=== PATIENT | female | born 1975 | race Two or more races ===

== ENCOUNTER 2017-05-06 06:38 | Emergency (ER) | payer OTHER ==
[~2017-05-06] VITALS: Ht 160 cm; Wt 66.2 kg
[2017-05-06 08:10] VITALS: BP 108/62
[2017-05-06] MEDS ORDERED: METHOCARBAMOL 500 MG TAB PO ONE (09:30)
== END 2017-05-06 09:56 | disposition home or self-care (01) ==
LOC: ER 06:38
DX: S74.00XA Injury of sciatic nerve at hip and thigh level, unspecified leg, initial encounter (principal); X50.1XXA Overexertion from prolonged static or awkward postures, initial encounter; Y93.89 Activity, other specified; Y99.8 Other external cause status; Y92.89 Other specified places as the place of occurrence of the external cause

== ENCOUNTER 2025-02-08 08:33 | Emergency (ER) | payer OTHER ==
[~2025-02-08] VITALS: Ht 160 cm; Wt 66.8 kg
[2025-02-08 09:48] LABS: Urine Bacteria None Seen /hpf (None Seen)
[2025-02-08 09:51] LABS: Basophils # (auto) 0 10 ^3/uL (0-0.2); Eosinophils # (auto) 0 10 ^3/uL (0-0.8); Hemoglobin 9.7 g/dL (12.2-16.2); Neutrophils # (auto) 1.8 10 ^3/uL (1.6-8.6); Nucleated Red Blood Cells % 0.1 %; Red Cell Distribution Width 19.5 % (11.8-14.3); White Blood Cell 3.4 10^3/uL (4.4-10.8)
[2025-02-08 09:54] LABS: Basophils % (auto) 0.2 % (0.0-2.0); Hematocrit 31.8 % (36.0-46.0); Lymphocytes # (auto) 1.2 10 ^3/uL (0.4-5.4); Lymphocytes % (auto) 35.2 % (10.0-50.0); Mean Corpuscular Hemoglobin 21.1 pg (28.0-32.0); Mean Corpuscular Hgb Conc. 30.6 g/dL (32.0-36.0); Monocytes # (auto) 0.4 10 ^3/uL (0-1.3); Monocytes % (auto) 12.5 % (0.0-12.0); Neutrophils % (auto) 52.1 % (37.0-80.0); Platelet Count (auto) 325 10^3/uL (140-450)
[2025-02-08 09:59] LABS: Chloride 105 mmol/L (98-107); Potassium 3.7 mmol/L (3.5-5.1)
[2025-02-08 10:00] LABS: Anion Gap 8 (5-15); Calcium 9.4 mg/dL (8.7-10.4); Carbon Dioxide 23 mmol/L (20-31); Sodium 136 mmol/L (136-145)
[2025-02-08 10:01] LABS: Urine Blood Negative /uL (Negative); Urine Clarity Clear (Clear); Urine Color Light-Yellow (Yellow); Urine Mucus FEW (None Seen); Urine Protein, UAD Negative (Negative); Urine Specific Gravity 1.018 (1.001-1.035); Urine Squamous Epithelial Cell FEW /hpf (<5); Urine Urobilinogen Normal (Negative); Urine WBC 1 /HPF (0-5)
[2025-02-08 10:05] LABS: BUN/Creatinine Ratio 13.7 (10.0-20.0); Blood Urea Nitrogen 10 mg/dL (9-23); Glucose 95 mg/dL (74-106)
--- NOTE | 2025-02-08 10:10 | DVH ---
XY CHEST XRAY 1 VIEW, HISTORY: cough x 3 wks. COMPARISON: None None TECHNICAL DATA: 1 view of the chest was obtained. FINDINGS: Lines and tubes: None Cardiomediastinal silhouette: normal Pulmonary vasculature: normal Lung expansion: normal Lung airspace: normal Lung interstitium: normal Pleura: normal Pneumothorax: no Bones: Unremarkable Other: no IMPRESSION: No acute intrathoracic abnormality.
[2025-02-08 10:17] VITALS: BP 146/97; PULSE 97; RESP 17; TEMP 98.2; O2SAT 97
[2025-02-08] MEDS ORDERED: DOXY-286 PO (10:29)
[2025-02-08] MEDS ORDERED: FER325T PO (10:29)
[2025-02-08] MEDS ORDERED: ERY05OO OP (10:29)
--- NOTE | 2025-02-08 10:30 | ED.PDOC ---
SOB-HPI HPI Comments This is a pleasant 50-year-old female with no pertinent MHx that presents with a chief complaint of URI symptoms. She complains of a productive cough for the last three weeks that is associated with green phlegm. Also notes bilateral ocular discharge that has been constant for the last two days. Discharges white yellow when color in his usually worse in the a.m.. Has not tried medications for the symptoms listed above. Denies sick contacts. Denies fevers chills night sweats unintentional weight loss Denies persistent chest pain, shortness of breath, leg swelling Denies history of asthma nor any breathing conditions Denies history of pneumonia Denies recent international travel Associated with no ocular changes. Denies any eye pain. Foreign body sensation in the eyes. Chief Complaint: Cough Time Seen by MD: 08:44 Primary Care Provider: INOCENCIO Denson notes: Nurses Notes, Medications, Allergies Information Source: Patient Mode of Arrival: Ambulatory Past Medical History PAST MEDICAL HISTORY: Denies Surgical History: Denies all surgeries HAIR CUTTER History: No Pertinent HAIR CUTTER History Family History Family History: Reviewed,noncontributory to illness Social History Smoker: Non-Smoker Alcohol: Denies ETOH Use Drugs: Denies Drug Use All Other Systems: Reviewed and Negative (PER HPI) Physical Exam General Appearance: No Apparent Distress, Normal HEENT: Normal ENT Inspection, PERRL/EOMI (No edema erythema or TTP. Bilateral conjunctival injection to the orbital region. Yellow stringy discharge times across the upper and lower eyelid. Vision intact.), Pharynx Normal, TMs Normal Neck: Full Range of Motion, Non-Tender, Normal, Normal Inspection Respiratory: Chest Non-Tender, Lungs Clear, No Accessory Muscle Use, No Respiratory Distress, Normal Breath Sounds Cardiovascular: No Edema, No JVD, No Murmur, No Gallop, Normal Peripheral Pulses, Regular Rate/Rhythm Breast Exam: Deferred Gastrointestinal: No Organomegaly, Non Tender, No Pulsatile Mass, Normal Bowel Sounds, Soft Genitalia: Deferred Pelvic: Deferred Rectal: Deferred Extremities: No calf tenderness, Normal capillary refill, Normal inspection, Normal range of motion, Non-tender, No pedal edema Musculoskeletal : Apperance: Normal Neurologic: Alert, manager care management II-XII nml as Tested, No Motor Deficits, Normal Affect, Normal Mood, No Sensory Deficits Cerebellar Function: Normal Reflexes: Normal Skin: Dry, Normal Color, Warm Lymphatic: No Adenopathy Was a procedure done? Was a procedure done?: No Differential Dx Differential Diagnosis: Bronchitis, Pneumonia, URI X-Ray, Labs, Meds, VS Vital Signs Date Time Temp Pulse Resp B/P (MAP) Pulse Ox O2 Delivery O2 Flow Rate FiO2 02/08/25 10:17 98.2 88 16 146/97 (113) 98 98.2 02/08/25 10:17 97 17 97 Room Air 02/08/25 08:54 18 97 Room Air* 0 21 02/08/25 08:54 97.6 97 18 154/100 (118) 97 97.6 135/93 (107) Lab Test 02/08/25 09:35 02/08/25 09:27 Range/Units White Blood Count 3.4 L 4.4-10.8 10^3/uL Red Blood Count 4.60 4.0-5.20 10^6/uL Hemoglobin 9.7 L 12.2-16.2 g/dL Hematocrit 31.8 L 36.0-46.0 % Mean Corpuscular Volume 69.0 L 80.0-100.0 fL Mean Corpuscular Hemoglobin 21.1 L 28.0-32.0 pg Mean Corpuscular Hemoglobin Concent 30.6 L 32.0-36.0 g/dL Red Cell Distribution Width 19.5 H 11.8-14.3 % Platelet Count 325 140-450 10^3/uL Mean Platelet Volume 6.7 L 6.9-10.8 fL Neutrophils (%) (Auto) 52.1 37.0-80.0 % Lymphocytes (%) (Auto) 35.2 10.0-50.0 % Monocytes (%) (Auto) 12.5 H 0.0-12.0 % Eosinophils (%) (Auto) 0.0 0.0-7.0 % Basophils (%) (Auto) 0.2 0.0-2.0 % Neutrophils # (Auto) 1.8 1.6-8.6 10 ^3/uL Lymphocytes # (Auto) 1.2 0.4-5.4 10 ^3/uL Monocytes # (Auto) 0.4 0-1.3 10 ^3/uL Eosinophils # (Auto) 0 0-0.8 10 ^3/uL Basophils # (Auto) 0 0-0.2 10 ^3/uL Nucleated Red Blood Cells 0.1 % Sodium Level 136 136-145 mmol/L Potassium Level 3.7 3.5-5.1 mmol/L Chloride Level 105 98-107 mmol/L Carbon Dioxide Level 23 20-31 mmol/L Anion Gap 8 5-15 Blood Urea Nitrogen 10 9-23 mg/dL Creatinine 0.73 0.550-1.02 mg/dL Glomerular Filtration Rate Calc 101 >90 mL/min BUN/Creatinine Ratio 13.7 10.0-20.0 Serum Glucose 95 74-106 mg/dL Calcium Level 9.4 8.7-10.4 mg/dL Urine Color Light-yellow Yellow Urine Clarity Clear Clear Urine pH 6.0 5.0-9.0 Urine Specific [place] 1.018 1.001-1.035 Urine Protein Negative Negative Urine Ketones Negative Negative Urine Blood Negative Negative /uL Urine Nitrite Negative Negative Urine Bilirubin Negative Negative Urine Urobilinogen Normal Negative mg/dL Urine Leukocyte Esterase Negative Negative /uL Urine RBC 1 0 - 4 /hpf Urine Microscopic WBC 1 0-5 /HPF Urine Squamous Epithelial Cells Few <5 /hpf Urine Bacteria None seen None Seen /hpf Urine Mucus Few None Seen Urine Glucose Normal Normal mg/dL PATIENT: REGIS DÍAZT: [id number]: [id number] : 1975 LOC: ER ROOM / BED: / AGE / SEX: 50 / F ADM STATUS: REG ER SERVICE [id number] ORDERING PHYSICIAN: IZA SCOTT NP PROCEDURE(s): CXR1 - CHEST XRAY 1 VIEW REASON: cough x 3 wks. ORDER NUMBER(s): [id number], ACCESSION NUMBER(s): [id number] XY CHEST XRAY 1 VIEW, HISTORY: cough x 3 wks. COMPARISON: None None TECHNICAL DATA: 1 view of the chest was obtained. FINDINGS: Lines and tubes: None Cardiomediastinal silhouette: normal Pulmonary vasculature: normal Lung expansion: normal Lung airspace: normal Lung interstitium: normal Pleura: normal Pneumothorax: no Bones: Unremarkable Other: no IMPRESSION: No acute intrathoracic abnormality. ATED BY: DARINEL ALEMAN MD DICTATED DATE/TIME: 02/08/25 1007 SIGNED BY: DARINEL ALEMAN MD SIGNED DATE/TIME: 02/08/25 1007 CC: X-Ray, Labs, Meds, VS Comment Presentation consistent with bacterial conjunctivitis. Patient is otherwise afebrile and well-appearing without clinical evidence of pre-septal cellulitis or orbital cellulitis. No recent history concerning for corneal abrasion or retained foreign body Prescription for topical antibiotics provided. Advised that patient still considered contagious for up to 24 hours after starting antibiotics Discussed: -Frequent hand washing -Over the counter analgesics -Hydration - Return to school/work after 24 hours of antibiotic use -Close follow up with a primary care provider or higher level of care if no improvement/worsening symptoms Based on shared decision-making patient also agreed to empiric treatment. Complete course of antibiotic therapy even if symptoms improve or resolve. There should be no leftover antibiotics as this can lead to antibiotic resistant bacteria and even worse infection. Patient verbalized understanding. Potential side effects discussed with patient including abdominal pain, nausea, diarrhea. Discussed that cough can linger up to 6 weeks after viral URI Supportive care and return precautions discussed Recommended vitamin C, rest, handwashing, and symptomatic care. Expect 2-week course with possibly of cough lingering up to 6 weeks. Nonpharmacological remedies for fluids has been recommended as well Additional MDM Review of External, Non-ED records: External records reviewed. Discussion with independent historian (EMS, family) history obtained from the patient at bedside Chronic conditions affecting care: none Social determinants of health affecting care: none Consideration of admission (observation or admission): I considered escalation of care to admission for this patient, however given the reassuring workup, the patient is safe for outpatient management. Time of 1ST Reevaluation: 10:24 Reevaluation 1ST: Improved Patient Education/Counseling: Diagnosis, Treatment, Prognosis Family Education/Counseling: Diagnosis, Treatment, Prognosis Departure 1 Departure Time of Disposition: 10:27 Impression: Primary Impression: Conjunctivitis Qualified Codes: H10.33 - Unspecified acute conjunctivitis, bilateral Additional Impressions: Bronchitis Anemia Qualified Codes: D64.9 - Anemia, unspecified Disposition: HOME / SELF CARE / HOMELESS Condition: Fair e-Prescriptions Ferrous Sulfate (FERROUS SULFATE) 325 Mg Tb 1 TAB PO DAILY for 30 Days, #30 TAB 0 Refills Prov: IZA SCOTT CONCRETE ANALYST 02/08/25 Doxycycline Hyclate (DOXYCYCLINE HYCLATE) 100 Mg Tab 1 TAB PO BID for 7 Days, #14 TAB 0 Refills Prov: IZA SCOTT CONCRETE ANALYST 02/08/25 Erythromycin (Erythromycin) 5 Mg/Gm Oin 1 APPLIC OP TID for 7 Days, #3.5 GRAMS 0 Refills Prov: IZA SCOTT CONCRETE ANALYST 02/08/25 Critical Care Note Critical Care Time?: No Stability Stability form required: No Heart Score Heart Score: Heart Score Response (Comments) Value History N/A 0 EKG N/A 0 Age N/A 0 Risk Factors N/A 0 Troponin N/A 0 Total 0 IZA SCOTT CONCRETE ANALYST February 08, 2025 10:30
== END 2025-02-08 10:36 | disposition home or self-care (01) ==
LOC: ER 08:36
DX: H10.33 Unspecified acute conjunctivitis, bilateral (principal); J40 Bronchitis, not specified as acute or chronic; D64.9 Anemia, unspecified; Z79.899 Other long term (current) drug therapy
CPT/HCPCS: 36415; 71045; 80048; 81001; 85025

== ENCOUNTER 2025-09-14 21:35 | Inpatient (IN) | payer MEDICAID, OTHER ==
[~2025-09-14] VITALS: Ht 160 cm; Wt 62.0 kg
[~2025-09-14 21:35] MED LIST: DOXY-286 PO; ERY05OO OP; FER325T PO; LISI10TA34 PO
--- NOTE | 2025-09-14 22:55 | ED.PDOC ---
SOB-HPI HPI Comments 50-year-old female, with a history of breast cancer and hypertension, presents to the ED with a chief complaint of SOB x1 day. Patient reports being diagnosed with cancer in June, and starting chemotherapy yesterday. Patient reports taking new medications Keytruda, Taxol, Paraplatin, Adriamycin, and Cytoxan. Patient states she was told to come to the ER if she experienced any symptoms of shortness of breath or bradycardia. Patient has no further complaints at this time, and otherwise denies symptoms of dizziness, weakness, palpitations, nausea, or vomiting. She reported having some bradycardia with a heart rate in the 50s at home associated with lightheadedness and dizziness. REVIEW OF SYSTEMS: General: No fever, no chills, or fatigue HEENT: No sore throat, no earache, no congestion, no neck pain. Cardiac: No chest pain. No palpitations. Lungs: + shortness of breath, no cough. GI: No nausea, no vomiting, no diarrhea, no constipation, no abdominal pain : No dysuria, frequency, or urgency. No hematuria. Musculoskeletal: No joint pain , no joint swelling, no extremity edema. Skin: No rash, no itching. Neuro: No headache, no dizziness, no weakness (And as sated in HPI) PHYSICAL EXAM: General: Awake, alert and oriented. No acute distress. Skin: Skin in warm, dry and intact. Appropriate color for ethnicity. HEENT: The head is normocephalic and atraumatic. Conjunctivae are clear without exudates or hemorrhage. Sclera is non-icteric. Eyelids are normal in appearance without swelling or lesions. Oral mucosa is pink and moist Neck: The neck is supple with normal range of motion. No JVD. Cardiac: Heart rate and rhythm are normal. No murmurs, gallops, or rubs are auscultated. Respiratory: No signs of respiratory distress. Lung sounds are clear in all lobes bilaterally without rales, rhonchi, or wheezes. Abdominal: Abdomen is soft, non-tender without distention, guarding or rigidity. Bowel sounds are present and normoactive in all four quadrants. Extremities: Lower extremities without edema. Neurological: The patient is awake, alert and oriented to person, place, and time with normal speech. Speech is clear. There is no facial asymmetry. Psychiatric: Appropriate mood and affect. Good judgement and insight. Chief Complaint: Shortness of Breath Time Seen by MD: 23:06 Reviewed notes: Medications, Allergies Information Source: Patient Mode of Arrival: Ambulatory Severity: Moderate Timing: Days Duration: Since onset Context: At Rest, With Light Exertion, With Heavy Exertion Past Medical History PAST MEDICAL HISTORY: Cancer (Breast cancer), HTN Surgical History: Denies all surgeries TAPE FASTENER MACHINE OPERATOR History: No Pertinent TAPE FASTENER MACHINE OPERATOR History Family History Family History: Family hx of DM, Family hx of heart dion, Family hx of HTN Social History Smoker: Non-Smoker Alcohol: Denies ETOH Use Drugs: Denies Drug Use Lives In: Home EKG EKG : Pulse Rate (adult): 59 [place]: Normal Cardiac Rhythm: NSR Block: None Hypertrophy: None Comments No STEMI Was a procedure done? Was a procedure done?: No Differential Dx Differential Diagnosis: Anxiety, Asthma, Bronchitis, COPD, Hypertension, Panic Attack, Pneumonia, Sinusitis, Allergic Rhinitis, Pharyngitis, Other (Differential diagnoses considered includebut arenot limited to acute Bronchitis, Asthma, COPD, Pneumothorax, PE, CHF, Pulmonary HTN, Anemia, CO Poiso cari, Methemoglobinemia, Hyperventilation, Metabolic Acidosis, Pulmonary Edema, Pneumonia, ACS, Pericardial Tamponade, Anxiety, other) X-Ray, Labs, Meds, VS Vital Signs Date Time Temp Pulse Resp B/P (MAP) Pulse Ox O2 Delivery O2 Flow Rate FiO2 09/15/25 00:28 54 15 123/77 (92) 97 09/14/25 22:55 59 09/14/25 22:07 Room Air* 0 21 09/14/25 22:06 97.7 65 14 143/94 (110) 98 97.7 09/14/25 22:05 97.5 73 16 155/104 96 97.5 09/14/25 21:50 59 Lab Test 09/15/25 00:01 09/14/25 23:53 09/14/25 23:03 Range/Units Troponin I High Sensitivity < 3 L < 3 L </=34 ng/L Influenza Type A Antigen Positive Negative Influenza Type B Antigen Positive Negative SARS-CoV-2 Antigen (Rapid) Positive NEGATIVE White Blood Count 8.6 4.4-10.8 10^3/uL Red Blood Count 3.95 L 4.0-5.20 10^6/uL Hemoglobin 11.8 L 12.2-16.2 g/dL Hematocrit 35.0 L 36.0-46.0 % Mean Corpuscular Volume 88.7 80.0-100.0 fL Mean Corpuscular Hemoglobin 29.9 28.0-32.0 pg Mean Corpuscular Hemoglobin Concent 33.8 32.0-36.0 g/dL Red Cell Distribution Width 14.1 11.8-14.3 % Platelet Count 260 140-450 10^3/uL Mean Platelet Volume 7.3 6.9-10.8 fL Neutrophils (%) (Auto) 86.8 H 37.0-80.0 % Lymphocytes (%) (Auto) 8.6 L 10.0-50.0 % Monocytes (%) (Auto) 4.5 0.0-12.0 % Eosinophils (%) (Auto) 0.0 0.0-7.0 % Basophils (%) (Auto) 0.1 0.0-2.0 % Neutrophils # (Auto) 7.5 1.6-8.6 10 ^3/uL Lymphocytes # (Auto) 0.7 0.4-5.4 10 ^3/uL Monocytes # (Auto) 0.4 0-1.3 10 ^3/uL Eosinophils # (Auto) 0 0-0.8 10 ^3/uL Basophils # (Auto) 0 0-0.2 10 ^3/uL Nucleated Red Blood Cells 0.1 % D-Dimer, Quantitative 0.87 H 0.0-0.49 mg/L FEU Sodium Level 139 136-145 mmol/L Potassium Level 4.6 3.5-5.1 mmol/L Chloride Level 107 98-107 mmol/L Carbon Dioxide Level 26 20-31 mmol/L Anion Gap 6 5-15 Blood Urea Nitrogen 13 9-23 mg/dL Creatinine 0.71 0.550-1.02 mg/dL Glomerular Filtration Rate Calc 105 >90 mL/min BUN/Creatinine Ratio 18.3 10.0-20.0 Serum Glucose 110 H 74-106 mg/dL Lactic Acid Level 0.8 0.4-2.0 mmol/L Calcium Level 9.0 8.7-10.4 mg/dL Total Bilirubin 0.6 0.2-1.0 mg/dL Aspartate Amino Transferase (AST) 30 13-40 U/L Alanine Aminotransferase (ALT) 19 7-40 U/L Alkaline Phosphatase 72 46-116 U/L B-Type Natriuretic Peptide 58.13 0-100 pg/mL Total Protein 8.4 H 5.7-8.2 g/dL Albumin 3.9 3.2-4.8 g/dL Current Medications Medications (Trade) Dose Ordered Sig/Max Route Start Time Stop Time Status Last Admin Sodium Chloride 1,000 ml @ 60 mls/hr [id number] IV 09/15/25 03:15 09/15/25 03:15 Time of 1ST Reevaluation: 23:37 Reevaluation 1ST: Unchanged Patient Education/Counseling: Diagnosis, Treatment, Need For Follow Up Family Education/Counseling: No Family Present SEPSIS Sepsis Screen Date sepsis recognized/suspect: Sep 14, 2025 Time Sepsis recognized/suspect: 2209 Recent Procedure: No On Antibiotic Therapy: No Respiratory Rate >20: No Heart Rate >90: No Temp<36 C (96.8 F) or >38.3 C: No SBP <90 or MAP <65 mmHG: No New Acute Mental Status Change: No Is the patient on CPAP, BIPAP,: No Physician Orders Abg W/ Co-Ox (09/14/25 22:48) Chest Xray 1 View (09/14/25 22:48) Electrocardigram (09/14/25 22:48) Electrocardigram (09/14/25 23:48) Electrocardigram (09/15/25 01:48) Ct Angio Chest Contrast (09/15/25 01:49) Complete Blood Count (09/15/25 04:00) Comprehensive Metabolic Panel (09/15/25 04:00) Isolation Order (09/15/25 03:15) Precautions (Contact,Droplets, (09/15/25 03:15) Lactate Dehydrogenase (09/19/25 05:30) Chest Portable (09/19/25 07:00) Electrocardigram (09/19/25 08:00) Zinc Sulfate (09/15/25 10:00) Albuterol Inhaler (Ventolin Hfa) (09/15/25 03:15) Oob To Chair Q4HR (09/15/25 03:15) Incentive Spirometry Q 1hr (09/15/25 03:15) Wrapper Stitcher (09/15/25 03:15) C-Reactive Protein (09/19/25 03:15) Budesonide (Inhalation) (Pulmicort Flexh (09/15/25 10:00) Dexamethasone Injection (Decadron Inject (09/15/25 10:00) Enoxaparin Sodium (Lovenox) (09/15/25 10:00) Allergies (09/15/25 03:15) Code Status (09/15/25 03:15) Sodium Chloride 0.9% (09/15/25 03:15) Oxygen Per Hour (09/15/25 03:15) Hydrocodone-Acet 5/325mg Tab ([place] 5/32 (09/15/25 03:15) Ondansetron Hcl (Zofran) (09/15/25 03:15) Docusate Sodium Capsule (Colace Capsule) (09/15/25 03:15) Ascorbic Acid Tablet (Vitamin C Tablet) (09/15/25 10:00) Multiple Vitamin Tablet (Mvi Tab) (09/15/25 10:00) Complete Blood Count (09/16/25 04:00) Comprehensive Metabolic Panel (09/16/25 04:00) Cardiac Diet-2gna,Lofat,Lochol (09/15/25 Breakfast) Condition: Serious (09/15/25 03:15) Acetaminophen Tablet (Tylenol Tablet) (09/15/25 03:15) Bedrest With Bathroom Privileg (09/15/25 03:15) Sequential Compression Device (09/15/25 ) Oseltamivir 75mg Capsule (Tamiflu 75mg C (09/15/25 10:00) Vital Signs Date Time Temp Pulse Resp B/P (MAP) Pulse Ox O2 Delivery O2 Flow Rate FiO2 09/15/25 00:28 54 15 123/77 (92) 97 09/14/25 22:55 59 09/14/25 22:07 Room Air* 0 21 09/14/25 22:06 97.7 65 14 143/94 (110) 98 97.7 09/14/25 22:05 97.5 73 16 155/104 96 97.5 09/14/25 21:50 59 Laboratory Tests Test 09/14/25 23:03 Lactic Acid Level 0.8 mmol/L (0.4-2.0) White Blood Count 8.6 10^3/uL (4.4-10.8) Medications Medications Dose Ordered Sig/Max Route Start Time Stop Time Status Last Admin Dose Admin Sodium Chloride 1,000 ml @ 60 mls/hr [id number] IV 09/15/25 03:15 09/15/25 03:15 Departure 1 Departure Time of Disposition: 04:21 Impression: Primary Impression: COVID Additional Impressions: Influenza Shortness of breath Elevated d-dimer Disposition: ADMITTED INPATIENT Condition: Stable Comments 50-year-old female with a history of breast cancer on chemotherapy presents to the emergency department with worsening shortness of breath and with the past 24 hours. COVID and flu positive. D-dimer positive. CT angiogram to rule out PE pending. Patient is stable during the ED observation. Patient admitted to hospitalist service for further treatment, evaluation and monitoring. Critical Care Note Critical Care Time?: No Stability Stability form required: No Heart Score Heart Score: Heart Score Response (Comments) Value History Slightly Suspicious 0 EKG Normal 0 Age 45-64 1 Risk Factors 1 or 2 risk factors 1 Troponin N/A 0 Total 2 I personally scribed for DANIELLE RODRIGUEZ MD ([email or web address]) on 09/14/25 at 22:55. Electronically submitted by Danni Jimenez ([employer]). I personally scribed for DANIELLE RODRIGUEZ MD ([email or web address]) on 09/14/25 at 23:15. Electronically submitted by Danni Jimenez ([employer]). DANIELLE RODRIGUEZ MD Sep 14, 2025 22:55
[2025-09-14 23:21] LABS: Hematocrit 35.0 % (36.0-46.0); Hemoglobin 11.8 g/dL (12.2-16.2); Mean Corpuscular Hemoglobin 29.9 pg (28.0-32.0); Mean Corpuscular Volume 88.7 fL (80.0-100.0); Nucleated Red Blood Cells % 0.1 %
--- NOTE | 2025-09-14 23:33 | DVH ---
CHEST RADIOGRAPH INDICATION: Shortness of breath TECHNIQUE: Single frontal view of the chest was obtained COMPARISON: XY CHEST PORTABLE on DOS: 06/27/25, XY CHEST XRAY 1 VIEW on DOS: 02/08/25 FINDINGS: Lines and Tubes: None Lungs: Clear Pleura: No effusion. No pneumothorax. Cardiomediastinal contours: Unremarkable Bones: Unremarkable IMPRESSION: 1. No acute disease.
[2025-09-14 23:37] LABS: Alanine Aminotransferase 19 U/L (7-40); Albumin 3.9 g/dL (3.2-4.8); Alkaline Phosphatase 72 U/L (46-116); Anion Gap 6 (5-15); BUN/Creatinine Ratio 18.3 (10.0-20.0); Bilirubin, Total 0.6 mg/dL (0.2-1.0); Blood Urea Nitrogen 13 mg/dL (9-23); Calcium 9.0 mg/dL (8.7-10.4); Carbon Dioxide 26 mmol/L (20-31); Chloride 107 mmol/L (98-107); Potassium 4.6 mmol/L (3.5-5.1); Sodium 139 mmol/L (136-145)
[2025-09-14 23:51] LABS: Glucose 110 mg/dL (74-106); Total Protein 8.4 g/dL (5.7-8.2)
[2025-09-15] VITALS (7 sets, daily range): BP systolic 116–123; BP diastolic 60–77; PULSE 54–85; RESP 15–20; TEMP 97.4–98.1; O2SAT 93–98
[2025-09-15 00:28] LABS: COVID19 ANTIGEN SOFIA FIA POSITIVE (NEGATIVE)
[2025-09-15] MEDS: SODIUM CHLORIDE 0.9% 1,000 ML IV SCH (03:15)
[2025-09-15] MEDS ORDERED: ONDANSETRON HCL 4 MG/2 ML VIAL IV PRN (03:15)
[2025-09-15] MEDS ORDERED: ACETAMINOPHEN 325 MG TAB PO PRN (03:15)
[2025-09-15] MEDS ORDERED: HYDROcodone-ACET 5/325MG TAB PO PRN (03:15)
[2025-09-15] MEDS ORDERED: DOCUSATE SOD 100 MG CAP PO PRN (03:15)
[2025-09-15] MEDS ORDERED: MORPHINE SULFATE INJ 2 MG/ml SYRG IV PRN (03:45)
[2025-09-15] MEDS ORDERED: NITROGLYCERIN 0.4 MG SL TAB SL PRN (03:45)
--- NOTE | 2025-09-15 03:46 | DVHHP2 ---
History of Present Illness Reason for Visit: Acute respiratory distress History of Present Illness The patient is a 50-year-old female with past medical history of hypertension and breast cancer currently on chemotherapy who presented to [facility] ED with complaint of shortness of breaths for the past 1 day. Patient reports that she was diagnosed with breast cancer in June this year, starting chemotherapy yesterday. Patient reports taking new medications Keytruda, Taxol, Paraplatin, Adriamycin, and Cytoxan. Patient started having symptoms of shortness of breaths and was told if she experienced any symptoms of shortness of breath or bradycardia, she come go to the ER. Patient was seen and evaluated in the ED, laboratory data shows WBC 8.6, hemoglobin 11.8, hematocrit 35.0, sodium 139, potassium 4.6, BUN 13, creatinine 0.71, GFR 105, glucose 110, calcium 9.0, BNP 58.13, troponin <3, protein 8.4, D-dimer 0.87, blood pressure 123/77, heart rate 59, temperature 97.7 F, O2 saturation 97% on oxygen. Chest x-ray show no acute disease. Please see medication orders section in the computer. On my assessment, patient denied chest pain, no headache, dizziness, diaphoresis, currently on oxygen, no diarrhea, nausea, vomiting, fever, no chills. Patient was admitted for further evaluation and medical management. Past Medical History Cancer (Breast cancer), HTN Past Surgical History Denies all surgeries Family History Reviewed, noncontributory to the management of this case. Past Social History The patient lives at home, denies smoking, alcohol or illicit drugs abuse. Review of Systems Constitutional: Yes: Weakness; No: Fever, Chills, Sweats, Malaise, Other Eyes: No: Pain, Vision change, Conjunctivae inflammation, Eyelid inflammation, Other, Redness ENT: No: Ear pain, Ear discharge, Nose pain, Nose discharge, Nose congestion, Mouth pain, Mouth swelling, Throat pain, Throat swelling, Other Respiratory: Shortness of breath, Other (SOB at rest); No: Cough, Dry, SOB with excertion, Wheezing, Hemoptysis, Pleuritic Pain, Sputum, Wheezing Cardiovascular: No: Chest Pain, Palpitations, Orthopnea, Paroxysmal Noc. Dyspnea, Edema, Lt Headedness, Other Gastrointestinal: No: Nausea, Vomiting, Abdominal Pain, Diarrhea, Constipation, Melena, Hematochezia, Other Genitourinary: No Dysuria, No Frequency, No Incontinence, No Hematuria, No Retention, No Other Musculoskeletal: No: other, neck pain, shoulder pain, arm pain, back pain, hand pain, leg pain, foot pain Skin: No: Rash, Lesions, Jaundice, Bruising, Other Neurological: No: Weakness, Numbness, Incoordination, Change in speech, Confusion, Seizures, Other Allergies: Coded Allergies: NO KNOWN ALLERGIES (Unverified , 06/26/25) Medications Current Medications Medications Dose Ordered Sig/Max Route Start Time Stop Time Status Last Admin Dose Admin Zinc Sulfate 220 mg DAILY PO 09/15/25 10:00 Albuterol 90 mcg TIDPRN PRN IN 09/15/25 03:15 Budesonide 360 mcg BID IN 09/15/25 10:00 Dexamethasone Sodium Phosphate 6 mg DAILY IV 09/15/25 10:00 09/25/25 09:59 Enoxaparin Sodium 40 mg DAILY SC 09/15/25 10:00 Sodium Chloride 1,000 ml @ 60 mls/hr [id number] IV 09/15/25 03:15 Acetaminophen/ Hydrocodone Bitart 1 tab Q4HP PRN PO 09/15/25 03:15 Ondansetron HCl 4 mg Q4HP PRN IV 09/15/25 03:15 Docusate Sodium 100 mg BIDPRN PRN PO 09/15/25 03:15 Ascorbic Acid 500 mg BID PO 09/15/25 10:00 Multivitamins 1 tab DAILY PO 09/15/25 10:00 Acetaminophen 650 mg Q6HP PRN PO 09/15/25 03:15 Oseltamivir Phosphate 75 mg Q12HR PO 09/15/25 10:00 09/20/25 09:59 Exam Vital Signs Vital Signs Date Time Temp Pulse Resp B/P (MAP) Pulse Ox O2 Delivery O2 Flow Rate FiO2 09/15/25 00:28 54 15 123/77 (92) 97 09/14/25 22:07 Room Air* 0 21 09/14/25 22:06 97.7 97.7 General Appearance: Alert, Oriented X3, Cooperative, No acute distress HEENT: Atraumatic, PERRLA, EOMI, Mucous membr. moist/pink Respiratory: Normal air movement, Other (Shortness of breaths) Cardiovascular: Normal S1, Normal S2, No murmurs Abdominal: Normal bowel sounds, Soft, No tenderness, No hepatospenomegaly, No masses Extremities: No clubbing, No cyanosis, No edema, Normal pulses, No tenderness/swelling Skin: No rashes, No significant lesion Neuro: Normal speech, Normal tone, Sensation intact, Cranial nerves 3-12 NL, Reflexes 2+, Other (Generalized weakness) Psych/Mental Status: Mental status NL, Mood NL Labs/Xrays Labs Test 09/15/25 00:01 09/14/25 23:53 09/14/25 23:03 Range/Units Troponin I High Sensitivity < 3 L </=34 ng/L Influenza Type A Antigen Positive Negative Influenza Type B Antigen Positive Negative SARS-CoV-2 Antigen (Rapid) Positive NEGATIVE White Blood Count 8.6 4.4-10.8 10^3/uL Red Blood Count 3.95 L 4.0-5.20 10^6/uL Hemoglobin 11.8 L 12.2-16.2 g/dL Hematocrit 35.0 L 36.0-46.0 % Mean Corpuscular Volume 88.7 80.0-100.0 fL Mean Corpuscular Hemoglobin 29.9 28.0-32.0 pg Mean Corpuscular Hemoglobin Concent 33.8 32.0-36.0 g/dL Red Cell Distribution Width 14.1 11.8-14.3 % Platelet Count 260 140-450 10^3/uL Mean Platelet Volume 7.3 6.9-10.8 fL Neutrophils (%) (Auto) 86.8 H 37.0-80.0 % Lymphocytes (%) (Auto) 8.6 L 10.0-50.0 % Monocytes (%) (Auto) 4.5 0.0-12.0 % Eosinophils (%) (Auto) 0.0 0.0-7.0 % Basophils (%) (Auto) 0.1 0.0-2.0 % Neutrophils # (Auto) 7.5 1.6-8.6 10 ^3/uL Lymphocytes # (Auto) 0.7 0.4-5.4 10 ^3/uL Monocytes # (Auto) 0.4 0-1.3 10 ^3/uL Eosinophils # (Auto) 0 0-0.8 10 ^3/uL Basophils # (Auto) 0 0-0.2 10 ^3/uL Nucleated Red Blood Cells 0.1 % D-Dimer, Quantitative 0.87 H 0.0-0.49 mg/L FEU Sodium Level 139 136-145 mmol/L Potassium Level 4.6 3.5-5.1 mmol/L Chloride Level 107 98-107 mmol/L Carbon Dioxide Level 26 20-31 mmol/L Anion Gap 6 5-15 Blood Urea Nitrogen 13 9-23 mg/dL Creatinine 0.71 0.550-1.02 mg/dL Glomerular Filtration Rate Calc 105 >90 mL/min BUN/Creatinine Ratio 18.3 10.0-20.0 Serum Glucose 110 H 74-106 mg/dL Lactic Acid Level 0.8 0.4-2.0 mmol/L Calcium Level 9.0 8.7-10.4 mg/dL Total Bilirubin 0.6 0.2-1.0 mg/dL Aspartate Amino Transferase (AST) 30 13-40 U/L Alanine Aminotransferase (ALT) 19 7-40 U/L Alkaline Phosphatase 72 46-116 U/L B-Type Natriuretic Peptide 58.13 0-100 pg/mL Total Protein 8.4 H 5.7-8.2 g/dL Albumin 3.9 3.2-4.8 g/dL PATIENT: DES DÍAZ ACCT: [id number] UNIT: [id number] : 1975 LOC: ER ROOM / BED: / AGE / SEX: 50 / F ADM STATUS: REG ER SERVICE 47 ORDERING PHYSICIAN: DANIELLE RODRIGUEZ MD PROCEDURE(s): CXR1 - CHEST XRAY 1 VIEW REASON: Shortness of breath ORDER NUMBER(s): [id number], ACCESSION NUMBER(s): [id number] CHEST RADIOGRAPH INDICATION: Shortness of breath TECHNIQUE: Single frontal view of the chest was obtained COMPARISON: XY CHEST PORTABLE on DOS: 06/27/25, XY CHEST XRAY 1 VIEW on DOS: 02/08/25 FINDINGS: Lines and Tubes: None Lungs: Clear Pleura: No effusion. No pneumothorax. Cardiomediastinal contours: Unremarkable Bones: Unremarkable IMPRESSION: 1. No acute disease. SEPSIS Sepsis Screen Date sepsis recognized/suspect: Sep 14, 2025 Time Sepsis recognized/suspect: 2209 Recent Procedure: No On Antibiotic Therapy: No Respiratory Rate >20: No Heart Rate >90: No Temp<36 C (96.8 F) or >38.3 C: No SBP <90 or MAP <65 mmHG: No New Acute Mental Status Change: No Is the patient on CPAP, BIPAP,: No Physician Orders Electrocardigram (09/14/25 21:45) Abg W/ Co-Ox (09/14/25 22:48) Chest Xray 1 View (09/14/25 22:48) Electrocardigram (09/14/25 22:48) Electrocardigram (09/14/25 23:48) Electrocardigram (09/15/25 01:48) Ct Angio Chest Contrast (09/15/25 01:49) Complete Blood Count (09/15/25 04:00) Comprehensive Metabolic Panel (09/15/25 04:00) Isolation Order (09/15/25 03:15) Precautions (Contact,Droplets, (09/15/25 03:15) Lactate Dehydrogenase (09/19/25 05:30) Chest Portable (09/19/25 07:00) Electrocardigram (09/19/25 08:00) Zinc Sulfate (09/15/25 10:00) Albuterol Inhaler (Ventolin Hfa) (09/15/25 03:15) Oob To Chair Q4HR (09/15/25 03:15) Incentive Spirometry Q 1hr (09/15/25 03:15) Postal Service Clerk (09/15/25 03:15) C-Reactive Protein (09/19/25 03:15) Budesonide (Inhalation) (Pulmicort Flexh (09/15/25 10:00) Dexamethasone Injection (Decadron Inject (09/15/25 10:00) Enoxaparin Sodium (Lovenox) (09/15/25 10:00) Allergies (09/15/25 03:15) Code Status (09/15/25 03:15) Sodium Chloride 0.9% (09/15/25 03:15) Oxygen Per Hour (09/15/25 03:15) Hydrocodone-Acet 5/325mg Tab ([place] 5/32 (09/15/25 03:15) Ondansetron Hcl (Zofran) (09/15/25 03:15) Docusate Sodium Capsule (Colace Capsule) (09/15/25 03:15) Ascorbic Acid Tablet (Vitamin C Tablet) (09/15/25 10:00) Multiple Vitamin Tablet (Mvi Tab) (09/15/25 10:00) Complete Blood Count (09/16/25 04:00) Comprehensive Metabolic Panel (09/16/25 04:00) Cardiac Diet-2gna,Lofat,Lochol (09/15/25 Breakfast) Condition: Serious (09/15/25 03:15) Acetaminophen Tablet (Tylenol Tablet) (09/15/25 03:15) Bedrest With Bathroom Privileg (09/15/25 03:15) Sequential Compression Device (09/15/25 ) Oseltamivir 75mg Capsule (Tamiflu 75mg C (09/15/25 10:00) Vital Signs Date Time Temp Pulse Resp B/P (MAP) Pulse Ox O2 Delivery O2 Flow Rate FiO2 09/15/25 00:28 54 15 123/77 (92) 97 09/14/25 22:55 59 09/14/25 22:07 Room Air* 0 21 09/14/25 22:06 97.7 65 14 143/94 (110) 98 97.7 09/14/25 22:05 97.5 73 16 155/104 96 97.5 09/14/25 21:50 59 Laboratory Tests Test 09/14/25 23:03 Lactic Acid Level 0.8 mmol/L (0.4-2.0) White Blood Count 8.6 10^3/uL (4.4-10.8) Assessment/Plan Assessment/Plan Acute respiratory distress COVID Influenza Elevated d-dimer Generalized weakness Plan 1. Admit to telemetry unit 2. Breathing treatment 3. Pain control management 4. IV antibiotic management 5. Management of fluids and electrolytes 6. Consultation for hospitalist 7. Diagnostic test chest x-ray 8. DVT prophylaxis-on Lovenox 9. Repeat labs CBC, CMP in a.m. 10. Home medication reviewed and reconciled 11. Continue with current medical management 12. Treatment plan discussed with patient and RN. Patient verbalized understanding. Plan discussed with: Patient, Other (RN) My Orders Orders - RAZA IPNA DNP Procedure Category Date Status Time Complete Blood Count LAB 09/15/25 Logged 04:00 Comprehensive LAB 09/15/25 Logged Metabolic Panel 04:00 Isolation Order ORDERS 09/15/25 Transmitted 03:15 Precautions DAVID 09/15/25 In Process (Contact,Droplets, 03:15 Lactate Dehydrogenase LAB 09/19/25 Verified 05:30 Chest Portable XY 09/19/25 Logged 07:00 Electrocardigram EKG 09/19/25 Logged 08:00 Zinc Sulfate PHA 09/15/25 In Process 10:00 Albuterol Inhaler PHA 09/15/25 In Process (Ventolin Hfa) 03:15 Oob To Chair DAVID 09/15/25 In Process 03:15 Incentive Spirometry ORDERS 09/15/25 Transmitted Q 1hr 03:15 Postal Service Clerk ORDERS 09/15/25 Transmitted 03:15 C-Reactive Protein LAB 09/19/25 Verified 03:15 Budesonide PHA 09/15/25 In Process (Inhalation) 10:00 Dexamethasone PHA 09/15/25 In Process Injection (Decadron 10:00 Enoxaparin Sodium PHA 09/15/25 In Process (Lovenox) 10:00 Allergies DAVID 09/15/25 In Process 03:15 Code Status CODE 09/15/25 Transmitted 03:15 Sodium Chloride 0.9% PHA 09/15/25 In Process 03:15 Oxygen Per Hour RT 09/15/25 Transmitted 03:15 Hydrocodone-Acet PHA 09/15/25 In Process 5/325mg Tab ([place] 03:15 Ondansetron Hcl PHA 09/15/25 In Process (Zofran) 03:15 Docusate Sodium PHA 09/15/25 In Process Capsule (Colace 03:15 Ascorbic Acid Tablet PHA 09/15/25 In Process (Vitamin C Tablet) 10:00 Multiple Vitamin PHA 09/15/25 In Process Tablet (Mvi Tab) 10:00 Complete Blood Count LAB 09/16/25 Verified 04:00 Comprehensive LAB 09/16/25 Verified Metabolic Panel 04:00 Cardiac DIET 09/15/25 Transmitted Diet-2gna,Lofat,Lochol Breakfast Condition: Serious DAVID 09/15/25 In Process 03:15 Acetaminophen Tablet PHA 09/15/25 In Process (Tylenol Tablet) 03:15 Bedrest With Bathroom DAVID 09/15/25 In Process Privileg 03:15 Sequential DAVID 09/15/25 In Process Compression Device Oseltamivir 75mg PHA 12/24/25 In Process Capsule (Tamiflu 75mg 10:00 Problem List: (1) Acute respiratory distress (2) COVID (3) Influenza (4) Elevated d-dimer (5) Generalized weakness Date of Service: Sep 15, 2025 Billing Provider: RAZA PINA DNP Common Visit Codes: [id number] INP/OBS CARE (HIGH) RAZA PINA DNP Sep 15, 2025 03:46
--- NOTE | 2025-09-15 03:57 | ECG ---
[facility] Test Date: 2025-09-14 Test Time: 21:50:44 Pat Name: DES DÍAZ Department: ED Room: 0232T Gender: F Unit Technician: TRINA : 1975 Requested By: EMERGENCY EMERGENCY Order Number: [id number] Reading MD: Denis Corona Measurements Intervals [place] Rate: 59 P: 53 [place]: 142 QRS: 34 QRSD: 93 T: 53 QT: 416 QTc: 413 Interpretive Statements Sinus rhythm Low voltage, precordial leads Abnormal R-wave progression, early transition Electronically Signed On 09-17-2025 10:30:38 PST by Denis Corona Please click the below link to view image of tracing.
[2025-09-15 09:08] LABS: Hematocrit 33.0 % (36.0-46.0); Hemoglobin 11.1 g/dL (12.2-16.2); Mean Corpuscular Hemoglobin 30.3 pg (28.0-32.0); Mean Corpuscular Volume 90.2 fL (80.0-100.0); Nucleated Red Blood Cells % 0.0 %
--- NOTE | 2025-09-15 09:15 | DVH ---
CLINICAL HISTORY: Shortness of breath, positive D-dimer TECHNIQUE: CT angiogram of the chest was performed with and without intravenous contrast. 3D reconstructed MIP images were created and archived on the PACS system under concurrent radiologist supervision. This exam was performed according to our departmental dose optimization program. Up-to-date CT equipment and radiation dose reduction techniques are utilized as appropriate. CTDI 17.8 DLP 266 COMPARISON: XY CHEST XRAY 1 VIEW on DOS: 09/14/25, XY CHEST PORTABLE on DOS: 06/27/25, XY CHEST XRAY 1 VIEW on DOS: 02/08/25 FINDINGS: Chest: There was [] opacification of the pulmonary artery tree. There is no filling defect to suggest acute pulmonary embolism. The thoracic aorta is normal in course and caliber. There are [] atherosclerotic calcifications. There is a 7.4 x 6.2 cm hypodense breast lesion with surrounding skin thickening and inflammation. The heart is normal in size. No pericardial effusion is seen. No enlarged mediastinal, hilar, or axillary lymph node is present. The central airways are patent. There is no bronchiectasis. There is no suspicious pulmonary nodule or area of consolidation. There is no pleural effusion present. Other: The visualized upper abdomen demonstrates a probable 2 mm nonobstructing left upper pole renal calculus. No acute osseous abnormality is identified. IMPRESSION: No CTA evidence for acute pulmonary embolism. No aortic dissection. No pneumonia. 7.4 x 6.2 cm left breast mass with differential including abscess and solid mass. Further workup recommended. Probable nonobstructing left renal calculus.
[2025-09-15 09:24] LABS: Alanine Aminotransferase 18 U/L (7-40); Albumin 3.5 g/dL (3.2-4.8); Alkaline Phosphatase 66 U/L (46-116); Anion Gap 7 (5-15); BUN/Creatinine Ratio 11.1 (10.0-20.0); Bilirubin, Total 0.8 mg/dL (0.2-1.0); Blood Urea Nitrogen 8 mg/dL (9-23); Calcium 8.3 mg/dL (8.7-10.4); Carbon Dioxide 23 mmol/L (20-31); Chloride 109 mmol/L (98-107); Glucose 83 mg/dL (74-106); Potassium 3.7 mmol/L (3.5-5.1); Sodium 139 mmol/L (136-145); Total Protein 7.5 g/dL (5.7-8.2)
[2025-09-15] MEDS: ZINC SULFATE 220mg CAP or TAB PO SCH (10:30)
[2025-09-15] MEDS: MULTIPLE VITAMIN TAB PO SCH (10:30)
[2025-09-15] MEDS: OSELTAMIVIR 75 MG CAP PO SCH (10:30)
[2025-09-15] MEDS: ASCORBIC ACID 500 MG TAB PO SCH (10:30)
[2025-09-15] MEDS: ENOXAPARIN SOD 40 MG/0.4 ML SYRINGE SC SCH (10:31)
[2025-09-15] MEDS: BUDESONIDE (INHALATION) 180 MCG IH IN SCH (10:38)
[2025-09-15] MEDS: ALBUTEROL SULF HFA 90MCG INH 200DOSE IN PRN (10:52)
[2025-09-15] MEDS ORDERED: NIRM1TAB8 PO (13:59)
[2025-09-15] MEDS ORDERED: OSEL75CA5 PO (13:59)
[2025-09-15] MEDS ORDERED: ALBU108A5 IN (13:59)
[2025-09-15] MEDS ORDERED: AZIT500T PO (14:14)
[2025-09-15] MEDS ORDERED: PROMETHAZINE HCL 6.25 MG/5 ML ORAL SYRUP PO ONE (15:30)
[2025-09-15] MEDS ORDERED: PROMETHAZINE HCL 6.25 MG/5 ML ORAL SYRUP PO PRN (15:30)
== END 2025-09-15 15:55 | disposition home or self-care (01) | DRG 137 ==
LOC: EEVIPCON 21:35 → ER 21:35 → OVERFLOW 09-15 03:45 → EDUNIT# 09-15 03:45 → TELE-EAST 09-15 06:20
PROVIDERS: ADMIT Student in an Organized Health Care Education/Training Program; ATTEND Student in an Organized Health Care Education/Training Program
DX: U07.1 COVID-19 (principal); I10 Essential (primary) hypertension; J11.1 Influenza due to unidentified influenza virus with other respiratory manifestations; R79.89 Other specified abnormal findings of blood chemistry; Z85.3 Personal history of malignant neoplasm of breast; Z83.3 Family history of diabetes mellitus; Z82.49 Family history of ischemic heart disease and other diseases of the circulatory system
CPT/HCPCS: 36415; 36600; 71045; 71275; 80053; 82306; 82607; 82746; 82805; 83036; 83605; 83735; 83880; 84443; 84484; 85025; 85379; 87426; 87804; 93005; 94640; G0378; J1100

== ENCOUNTER → 2025-09-22 | Outpatient (CLI) | payer MEDICAID ==
[~2025-09-22] MED LIST changes: +ALBU108A5 IN; +AZIT500T PO; -LISI10TA34 PO; +NIRM1TAB8 PO; +OSEL75CA5 PO
== END | disposition home or self-care (01) ==
LOC: XYW 09:58
PROVIDERS: ATTEND Internal Medicine
DX: I51.7 Cardiomegaly (principal); J90 Pleural effusion, not elsewhere classified; R06.02 Shortness of breath
CPT/HCPCS: 93306

== ENCOUNTER → 2025-09-22 | Outpatient (CLI) | payer MEDICAID ==
[2025-09-22 10:48] LABS: Hematocrit 33.1 % (36.0-46.0); Hemoglobin 11.5 g/dL (12.2-16.2); Mean Corpuscular Hemoglobin 30.7 pg (28.0-32.0); Mean Corpuscular Volume 88.7 fL (80.0-100.0); Nucleated Red Blood Cells % 0.0 %
[2025-09-22 11:16] LABS: Alanine Aminotransferase 21 U/L (7-40); Alkaline Phosphatase 79 U/L (46-116); Anion Gap 8 (5-15); BUN/Creatinine Ratio 19.7 (10.0-20.0); Blood Urea Nitrogen 14 mg/dL (9-23); Calcium 9.3 mg/dL (8.7-10.4); Carbon Dioxide 26 mmol/L (20-31); Glucose 103 mg/dL (74-106); Potassium 3.8 mmol/L (3.5-5.1); Sodium 143 mmol/L (136-145); Total Protein 8.1 g/dL (5.7-8.2); Urine Protein, UAD TRACE (Negative)
[2025-09-22 11:17] LABS: Albumin 4.1 g/dL (3.2-4.8); Bilirubin, Total 0.3 mg/dL (0.2-1.0)
[2025-09-22 11:18] LABS: Chloride 109 mmol/L (98-107)
== END | disposition home or self-care (01) ==
LOC: LAB 09:18
PROVIDERS: ATTEND Internal Medicine
DX: I10 Essential (primary) hypertension (principal)
CPT/HCPCS: 36415; 80053; 81001; 85025